=== PATIENT | male | born 1965 | race Caucasian/White ===

== ENCOUNTER 2016-11-20 05:54 | Inpatient (IN) | payer BC ==
[2016-11-08 10:00] LABS: BASOPHILS 0.2 %; BASOPHILS ABSOLUTE 0.01 10/3/uL (0.0-0.16); EOSINOPHILS 4.6 %; EOSINOPHILS ABSOLUTE 0.23 10/3/uL (0.0-0.53); HEMATOCRIT 43.7 % (40.0-51.0); HEMOGLOBIN 14.6 g/dL (13.6-17.8); IMMATURE GRANULOCYTES 0.4 %; IMMATURE GRANULOCYTES ABSOLUTE 0.02 10/3/uL (0.0-0.11); LYMPHOCYTES 25.1 %; LYMPHOCYTES ABSOLUTE 1.26 10/3/uL (0.67-4.30); MEAN CORPUS HGB CONC 33.4 g/dL (32.0-36.0); MEAN CORPUSCULAR HEMOGLOB 31.9 pg (26.0-34.0); MEAN PLATELET VOLUME 9.3 fL (9.2-13.0); NEUTROPHILS 61.7 %; PLATELET COUNT 163 10/3/uL (150-400); RBC DISTRIBUTION WIDTH 13.6 % (12.0-16.0); RED CELL COUNT 4.57 10/6/uL (4.7-6.1)
[2016-11-08 10:03] LABS: MANUAL DIFF NO %; MEAN CORPUSCULAR VOLUME 95.6 fL (80-100)
[2016-11-08 10:05] LABS: PARTIAL THROMBO TIME 30.1 SEC (22.5-37.2); PROTIME (NOT ORD) 13.5 SEC (12.0-14.5)
[2016-11-08 10:12] LABS: A/G RATIO 1.3 (0.7-1.9); ALBUMIN 4.5 G/DL (3.5-5.0); ALKALINE PHOSPHATASE 64 U/L (45-117); BUN (BLOOD UREA NITROGEN) 29 MG/DL (6-23); CALCIUM, SERUM 9.5 MG/DL (8.5-10.4); CHLORIDE, SERUM 102 MMOL/L (96-112); CO2 (CARBON DIOXIDE) 28 MMOL/L (24-34); CREATININE 1.44 MG/DL (0.70-1.30); GFR AFRICAN AMERICAN 65 ML/MIN (>=60); GFR NON AFRICAN AMERICAN 56 ML/MIN (>=60); GLOBULIN 3.5 G/DL (2.5-4.1); GLUCOSE, SERUM 108 MG/DL (60-99); POTASSIUM, SERUM 3.9 MMOL/L (3.5-5.3); SGOT(AST) 64 U/L (5-40); SGPT(ALT) 71 U/L (5-65); SODIUM, SERUM 138 MMOL/L (135-148); TOTAL BILIRUBIN 0.8 MG/DL (0-1.2)
[2016-11-08 13:56] LABS: ASCORBIC ACID (UR NOT ORDER) NEG (NEG); BILIRUBIN, URINE NEGATIVE (NEG); KETONE, URINE NEGATIVE (NEG); LEUKOCYTE ESTERASE(NOT OR NEG (NEG); WBC (NOT ORDERED) (RFLEX) < 1 (0-5)
--- NOTE | ~2016-11-20 | OP ---
Record Of Operation [facility] [address] [place]. [address] NAME: BENITA GONZALEZ JR : 67 STATUS : ADM IN PAT#: [id number] AGE: 51 ADM/REG DATE : 11/20/16 MR#: [id number] REPORT SERV DATE: 11/20/16 DICTATED BY: FRANKLIN SIMON DATE: 11/20/16 REPORT STATUS : Draft TRANSCRIBED BY: MODL DATE: 11/20/16 DATE OF PROCEDURE: 11/20/2016 PREOPERATIVE DIAGNOSIS: Avascular necrosis of the left hip. POSTOPERATIVE DIAGNOSIS: Avascular necrosis of the left hip. PROCEDURE: Left total hip arthroplasty. ROBOTIC MAINTENANCE TECHNICIAN: Madhu Sarkar. ANESTHESIA: General endotracheal. ESTIMATED BLOOD LOSS: 300 mL. COMPLICATIONS: None. DRAINS: ConstaVac x1. IMPLANTS: DePuy Iron Belt 58 mm outer diameter cup with a 36 mm inner diameter, +4 lateralized polyethylene liner. The femoral component was size 7 high offset Taylor stem with a 36 mm +1.5 head and neck segment. INDICATIONS FOR SURGERY: Mr. Gonzalez is a 51-year-old male with severe left hip pain secondary to avascular necrosis with collapse. It was recommended he undergo total hip arthroplasty. Risks of the procedure as detailed in the history and physical, and operative consent were discussed prior to proceeding. He fully understood and has requested to proceed. DESCRIPTION OF PROCEDURE: The patient was brought to the operating room and after adequate induction of anesthesia, was positioned in the lateral decubitus position using the hip associate artistic director positioners. All appropriate pressure points were padded and axillary roll was placed. The appropriate operative site was identified and confirmed by both the surgeon and the operating room staff in time out. The hip was then prepped and draped in the usual sterile fashion. A posterior lateral approach to the hip was performed. The skin and subcutaneous tissues were incised sharply using a #10 blade. Electrocautery was used as needed to maintain hemostasis. The fascia arnold and fascia over the gluteus sri were divided in line with the incision. The fibers of the gluteus sri were split bluntly. The sciatic nerve was identified and carefully protected throughout the remainder of the case. The Charnley retractor was then placed. The hip was placed in internal rotation and the superior border of the piriformis tendon identified. A full thickness capsulotomy was begun at the superior border of the piriformis tendon and extended anteriorly/inferiorly using an inside/out technique. A portion of the short external rotators were taken down in the Record Of Operation [place] [id number] [facility] [place]. [address] NAME: BENITA GONZALEZ JR : 67 STATUS : ADM IN PAT#: [id number] AGE: 51 ADM/REG DATE : 11/20/16 MR#: [id number] REPORT SERV DATE: 11/20/16 DICTATED BY: FRANKLIN SIMON DATE: 11/20/16 REPORT STATUS : Draft TRANSCRIBED BY: SATYA DATE: 11/20/16 capsular exposure. Leg length measurements were then taken. The hip was then dislocated posteriorly. The femoral neck was then marked and resected at the predetermined level from templating using an oscillating saw. Attention was then turned to the femur and the medial aspect of the greater trochanter was debrided of all cortical bone and soft tissue. The intramedullary canal was opened with a triple reamer. The femur was then sequentially reamed to the appropriate size Taylor stem. The femur was then sequentially broached, once again to the appropriately sized implant. The femoral neck resection was slightly revised using a calcar mill to bring it to the level of the femoral broach. The broach was then removed. Attention was then turned to the acetabulum and the acetabulum was debrided of all labral remnants, osteophytes, and the medial fibrofatty tissue was debrided and the true medial wall of the acetabulum identified. The acetabulum was then sequentially reamed from a size 43 mm hemispherical reamer to a reamer 1 mm smaller than the final component. At this level there was circumferential bleeding of subchondral bony surface. Any subchondral cysts were curetted. The true acetabular cup was then impacted into the acetabulum and a trial liner placed. A trial reduction was then performed. The leg lengths were felt to be equal. The hip was stable at its limited extension and external rotation and to 90 degrees of flexion and 80 degrees of internal rotation. The hip was also stable in the position of sleep. At this point all trial components were removed and the acetabular hole commission associate placed in the acetabular shell. The true acetabular liner was then impacted in the clean acetabular shell. The femoral canal was then copiously irrigated with normal saline and suctioned dry. The true femoral stem was then impacted into the femur to an identical depth and identical anteversion of the trial component. A trial reduction was once again performed to assure that there was no change in leg length or stability. The true femoral head ball was then impacted into the clean femoral taper. The acetabulum was inspected to be sure it was free of all foreign matter and the hip reduced. The wound was copiously irrigated with pulsatile lavage and normal saline. The capsule was repaired using interrupted #1 Vicryl suture in [id number] fashion. The short external rotators were repaired using #5 Ethibond in horizontal mattress fashion. Drain placed deep to the fascia. The fascia was closed with interrupted #5 Ethibond sutures in [id number] fashion. The subcutaneous tissues approximated with interrupted 2-0 Vicryl suture and the skin stapled. Sterile dressing applied. The patient awakened and taken to the recovery room in stable condition. POSTOP PLAN: The patient is to be mobilized weightbearing as tolerated with physical therapy. Posterior hip dislocation precautions. The patient is to be on Coumadin and mechanical deep venous thrombosis prophylaxis. /[facility] Record Of Operation [place] [id number] [place]. [address] NAME: BENITA GONZALEZ JR : 67 STATUS : [facility]#: [id number] AGE: 51 ADM/REG DATE : 11/20/16 MR#: [id number] REPORT SERV DATE: 11/20/16 DICTATED BY: FRANKLIN SIMON DATE: 11/20/16 REPORT STATUS : Draft TRANSCRIBED BY: MODL DATE: 11/20/16 Franklin Simon M.D. / [id number] CC: Franklin Simon M.D.
[~2016-11-20 05:54] MED LIST: ALEVE220 MG PO; AZOR1 TAB PO; BYSTOLIC; BYSTOLIC5 MG PO; DYAZIDE1 CAP PO; FISH-EPA1000 MG PO; GREEN DRINK; PEP20 PO; PROBIOTIC; PROZAC PO; TRIBENZOR 40-11 EAC1 PO; TRILIPIX; TRILIPIX135 MG PO; [UNRECOGNIZED DRUG - OTHER]
[2016-11-21 04:16] LABS: HEMOGLOBIN 11.7 g/dL (13.6-17.8)
[2016-11-21 04:18] LABS: HEMATOCRIT 34.9 % (40.0-51.0)
[2016-11-21 04:21] LABS: INTERNATIONAL NORMAL RATI 1.1 UNITS (-); PROTIME (NOT ORD) 13.9 SEC (12.0-14.5)
[2016-11-21 04:28] LABS: CHLORIDE, SERUM 100 MMOL/L (96-112); CO2 (CARBON DIOXIDE) 29 MMOL/L (24-34); CREATININE 1.37 MG/DL (0.70-1.30); GFR AFRICAN AMERICAN 69 ML/MIN (>=60); GFR NON AFRICAN AMERICAN 60 ML/MIN (>=60); GLUCOSE, SERUM 129 MG/DL (60-99); POTASSIUM, SERUM 4.4 MMOL/L (3.5-5.3); SODIUM, SERUM 138 MMOL/L (135-148)
[2016-11-21 04:29] LABS: BUN (BLOOD UREA NITROGEN) 16 MG/DL (6-23)
[2016-11-21] MEDS ORDERED: C5 (17:09)
[2016-11-21] MEDS ORDERED: OXYCOD PO (17:09)
== END 2016-11-21 17:55 | disposition home or self-care (01) | DRG 470 ==
LOC: SDC/OF 05:54 → PACU 09:30 → 3JRC 10:39
PROVIDERS: Specialist
PROC: 0SRB02Z Replacement of Left Hip Joint with Metal on Polyethylene Synthetic Substitute, Open Approach (ICD-10-PCS; principal; 2016-11-20 06:30)
DX: M87.852 Other osteonecrosis, left femur (principal); N17.9 Acute kidney failure, unspecified; A04.8 Other specified bacterial intestinal infections; N39.0 Urinary tract infection, site not specified; N13.30 Unspecified hydronephrosis; G30.9 Alzheimer's disease, unspecified; F02.80 Dementia in other diseases classified elsewhere, unspecified severity, without behavioral disturbance, psychotic disturbance, mood disturbance, and anxiety; E87.5 Hyperkalemia; I12.9 Hypertensive chronic kidney disease with stage 1 through stage 4 chronic kidney disease, or unspecified chronic kidney disease; N18.9 Chronic kidney disease, unspecified
CPT/HCPCS: 36415; 71020; 72170; 80048; 80053; 81001; 85014; 85018; 85025; 85610; 85730; 86850; 86900; 86901; 87641; 88304; 88311; 93005; 97150-GP; 97161-GP; 97165-GO; A9270-GY; C1776; J0690; J1170; J2250; J2405; J2550; J2710; J3010